=== PATIENT | female | born 1950 | race Caucasian/White ===

== ENCOUNTER → 2016-11-29 | Outpatient (CLI) | payer MEDICARE, OTHER ==
[~2016-11-29] MED LIST: ADIPEX-P37.5 MG PO; METHOTREXATE T2.5 MG PO; PERCOCET 5-3251 EACH PO
[2016-11-29 11:02] LABS: HEMOGLOBIN 13.6 gm/dl (12.3-15.3); RED BLOOD COUNT 4.52 M/UL (4.00-5.10); WHITE BLOOD COUNT 5.3 K/UL (4.5-11.0)
[2016-11-29 11:19] LABS: BUN/CREATININE RATIO 32 (0-10)
== END ==
LOC: OPSV2 10:00
PROVIDERS: Orthopaedic Surgery
DX: Z01.810 Encounter for preprocedural cardiovascular examination (principal); Z01.812 Encounter for preprocedural laboratory examination; G56.01 Carpal tunnel syndrome, right upper limb
CPT/HCPCS: 80048; 85025; 93005

== ENCOUNTER → 2016-12-13 | Day surgery (SDC) | payer MEDICARE, OTHER ==
[~2016-12-13] VITALS: Ht 162.6 cm; Wt 76.7 kg
== END | disposition home or self-care (01) ==
LOC: OR 12-06 07:45
PROVIDERS: Orthopaedic Surgery
PROC: 0RSUXZZ Reposition Right Metacarpophalangeal Joint, External Approach (ICD-10-PCS; 2016-12-13)
PROC: 01N50ZZ Release Median Nerve, Open Approach (ICD-10-PCS; principal; 2016-12-13 11:15)
DX: G56.11 Other lesions of median nerve, right upper limb (principal); M65.331 Trigger finger, right middle finger; M65.341 Trigger finger, right ring finger; G56.01 Carpal tunnel syndrome, right upper limb; M06.9 Rheumatoid arthritis, unspecified; G90.511 Complex regional pain syndrome I of right upper limb; Z87.81 Personal history of (healed) traumatic fracture; Z79.899 Other long term (current) drug therapy; Z87.891 Personal history of nicotine dependence
CPT/HCPCS: J0690; J1885; J2250; J3010; J7120

== ENCOUNTER → 2021-05-16 | Outpatient (CLI) | payer MEDICARE, OTHER | LOC: EXRD 05-09 11:30 | DX: M81.0 Age-related osteoporosis without current pathological fracture (principal); M06.9 Rheumatoid arthritis, unspecified; M85.862 Other specified disorders of bone density and structure, left lower leg | CPT/HCPCS: 77080 ==